=== PATIENT | female | born 1955 | race Caucasian/White ===

== ENCOUNTER → 2016-06-10 | Outpatient (CLI) | payer OTHER ==
--- NOTE | 2016-06-10 09:23 | REP ---
CHEST PA AND LATERAL: 06/10/2016. Clinical history: Acute bronchitis, unspecified. Productive cough. No comparison study. Findings. The lungs are well inflated. There is no pleural effusion, lateral pleural thickening, apical scarring or pneumothorax. There is some minimal linear scar in the left lateral base. There is no infiltrate, atelectasis or mass. The heart, mediastinal and hilar contours are normal. The airway is intact. The aorta is without aneurysm. Bony thorax shows small marginal osteophytes without acute compression deformity. No free air under the diaphragm. Impression: 1. Some minimal scar left lateral base without cardiomegaly, effusion, infiltrate, edema or other acute finding. Some minor degenerative changes in the spine, normal for age. Signed by Devante Castañeda MD 06/10/2016 09:37 A
[2016-06-10 12:43] LABS: BASO % 0.8 % (0.0-1.0); EOS % 1.9 % (0.0-3.0); LARGE UNSTAINED CELL # 0.1 K/mm3 (0.0-0.4); LARGE UNSTAINED CELL % 2.4 % (0.0-4.0); LYMPH # 1.1 K/mm3 (1.5-4.5); LYMPH % 38.3 % (24.0-44.0); MEAN CORPUSCULAR HEMOGLOBIN 30.1 pg (27.0-33.0); MEAN CORPUSCULAR HGB CONC 34.7 g/dl (32.0-36.5); MEAN CORPUSCULAR VOLUME 86.7 fl (80.0-96.0); MONO # 0.2 K/mm3 (0.0-0.8); MONO % 8.3 % (0.0-5.0); NEUTROPHILS # 1.3 K/mm3 (1.8-7.7); NEUTROPHILS % 48.3 % (36.0-66.0); PLATELET COUNT, AUTOMATED 195 k/mm3 (150-450); RED CELL DISTRIBUTION WIDTH 13.3 % (11.5-14.5); WHITE BLOOD COUNT 2.8 K/mm3 (4.0-10.0)
== END ==
LOC: M ADAMS 08:28
PROVIDERS: ATTEND Physician Assistant Medical
DX: J20.9 Acute bronchitis, unspecified (principal)

== ENCOUNTER → 2016-11-12 | Outpatient (REF) | payer OTHER ==
[2016-11-12 13:22] LABS: ANION GAP 7 MEQ/L (8-16); BLOOD UREA NITROGEN 17 MG/DL (7-18); CARBON DIOXIDE LEVEL 26 MEQ/L (21-32); CHLORIDE LEVEL 106 MEQ/L (98-107); CHOLESTEROL LEVEL 225 MG/DL (<200); CREATININE FOR GFR 0.84 MG/DL (0.55-1.02); GLOMERULAR FILTRATION RATE > 60.0 (>45); GLUCOSE, FASTING 126 MG/DL (80-110); POTASSIUM SERUM 4.5 MEQ/L (3.5-5.1); SODIUM LEVEL 139 MEQ/L (136-145); TRIGLYCERIDES LEVEL 256 MG/DL (<150)
== END ==
LOC: M LABDRWAD 12:21
PROVIDERS: ATTEND Nurse Practitioner Adult Health
DX: E78.00 Pure hypercholesterolemia, unspecified (principal); R73.01 Impaired fasting glucose

== ENCOUNTER → 2017-11-21 | Outpatient (REF) | payer OTHER ==
[2017-11-21 17:26] LABS: BASO # 0.1 10^3/uL (0.0-0.2); EOS # 0.2 10^3/uL (0.0-0.50); EOS % 3.3 % (0.0-3.0); HEMATOCRIT 40.8 % (36.0-47.0); HEMOGLOBIN 13.4 g/dl (12.0-15.5); IMMATURE GRANULOCYTE % 0.2 % (0-3.0); LYMPH # 2.4 10^3/uL (1.5-4.5); LYMPH % 46.1 % (24.0-44.0); MEAN CORPUSCULAR HEMOGLOBIN 29.3 pg (27.0-33.0); MEAN CORPUSCULAR HGB CONC 32.8 g/dl (32.0-36.5); MEAN CORPUSCULAR VOLUME 89.3 fl (80.0-96.0); MONO # 0.3 10^3/uL (0.0-0.8); MONO % 6.4 % (0.0-5.0); NEUTROPHILS # 2.2 10^3/uL (1.8-7.7); PLATELET COUNT, AUTOMATED 290 10^3/uL (150-450); RED BLOOD COUNT 4.57 10^6/uL (4.00-5.40); RED CELL DISTRIBUTION WIDTH 12.9 % (11.5-14.5); WHITE BLOOD COUNT 5.1 10^3/uL (4.0-10.0)
[2017-11-21 17:41] LABS: ALT/SGPT 27 U/L (12-78); AST/SGOT 14 U/L (7-37); C REACTIVE PROTEIN QUANTITATIV 0.36 MG/DL (0.00-0.30); CREATININE FOR GFR 0.83 MG/DL (0.55-1.30); GLOMERULAR FILTRATION RATE > 60.0 (>45)
[2017-11-21 17:49] LABS: ERYTHROCYTE SEDIMENTATION RATE 14 mm/hr (0-30)
== END ==
LOC: M LABDRWAD 17:06
DX: Z79.899 Other long term (current) drug therapy (principal)

== ENCOUNTER → 2017-11-21 | Outpatient (CLI) | payer OTHER ==
[2017-11-21 17:44] LABS: ALBUMIN 3.8 GM/DL (3.2-5.2); ALBUMIN/GLOBULIN RATIO 1.09 (1.00-1.93); ALKALINE PHOSPHATASE 89 U/L (45-117); ALT/SGPT 29 U/L (12-78); ANION GAP 8 MEQ/L (8-16); AST/SGOT 17 U/L (7-37); BILIRUBIN,TOTAL 0.6 MG/DL (0.2-1.0); BLOOD UREA NITROGEN 17 MG/DL (7-18); CALCIUM LEVEL 8.9 MG/DL (8.8-10.2); CARBON DIOXIDE LEVEL 25 MEQ/L (21-32); CHLORIDE LEVEL 108 MEQ/L (98-107); CHOLESTEROL LEVEL 237 MG/DL (<200); CHOLESTEROL RISK RATIO 4.388 (<5); CREATININE FOR GFR 0.85 MG/DL (0.55-1.30); GLOMERULAR FILTRATION RATE > 60.0 (>45); GLUCOSE, FASTING 111 MG/DL (70-100); HDL CHOLESTEROL 54 MG/DL (>40); NON-HDL-C 183 MG/DL; POTASSIUM SERUM 4.7 MEQ/L (3.5-5.1); SODIUM LEVEL 141 MEQ/L (136-145); TOTAL PROTEIN 7.3 GM/DL (6.4-8.2); TRIGLYCERIDES LEVEL 479 MG/DL (<150)
[2017-11-21 18:08] LABS: ESTIMATED AVERAGE GLUCOSE 137 MG/DL (60-110); HEMOGLOBIN A1c 6.4 %
== END ==
LOC: M ADAMS 08:50
DX: Z51.81 Encounter for therapeutic drug level monitoring (principal); Z79.899 Other long term (current) drug therapy; M05.79 Rheumatoid arthritis with rheumatoid factor of multiple sites without organ or systems involvement; E11.9 Type 2 diabetes mellitus without complications
CPT/HCPCS: 80053

== ENCOUNTER 2019-12-18 13:23 | Inpatient (IN) | payer OTHER ==
[~2019-12-18] VITALS: Ht 162.6 cm; Wt 84.9 kg
[2019-12-18] MEDS ORDERED: METF500T13 (13:53)
[2019-12-18] MEDS ORDERED: METH2.5T48 PO (13:53)
[2019-12-18] MEDS ORDERED: OXYC1TAB23 PO (13:53)
[2019-12-18] MEDS ORDERED: PLAQ200T4 PO (13:53)
[2019-12-18] MEDS ORDERED: LISI-538 PO (13:53)
[2019-12-18] MEDS ORDERED: METH1TAB40 PO (13:53)
[2019-12-18] MEDS ORDERED: CYCL5TAB PO (13:53)
[2019-12-18] MEDS ORDERED: FOLI1TAB11 PO (13:53)
[2019-12-18] MEDS ORDERED: ATOR1TAB19 PO (13:53)
[2019-12-18] MEDS ORDERED: methylPREDNISolone 125MG 2ML VIAL IV ONE (14:15)
[2019-12-18] MEDS ORDERED: LIDOCAINE 5% (LIDODERM) PATCH TD ONE (14:15)
[2019-12-18] MEDS ORDERED: CYCLOBENZAPRINE 10MG TABLET PO ONE (14:15)
[2019-12-18] MEDS ORDERED: MORPHINE 4 MG/ML 1ML VIAL/SYRINGE (J2270) IV ONE (14:15)
--- NOTE | 2019-12-18 15:23 | REPVR ---
PROCEDURE INFORMATION: Exam: CT Lumbar Spine Without Contrast Exam date and time: 12/18/2019 3:07 PM Age: 64 years old Clinical indication: Low back pain; Additional info: Low back pain radiating rle TECHNIQUE: Imaging protocol: Computed tomography images of the lumbar spine without contrast. Radiation optimization: All CT scans at this facility use at least one of these dose optimization techniques: automated exposure control; mA and/or kV adjustment per patient size (includes targeted exams where dose is matched to clinical indication); or iterative reconstruction. COMPARISON: No relevant prior studies available. FINDINGS: Vertebrae: Moderate L2-L3 spondylosis. Right L4 laminar defect. Discs/Spinal canal/Neural foramina: Severe L1-L2 and L2-L3 disc narrowing. Moderate L2-L3 spinal stenosis. Severe right L2-L3 neural foraminal narrowing (facet marginal hypertrophy). Moderately severe L3-L4 disc narrowing. Moderate L4-L5 disc narrowing. Mild bilateral L4-L5 primary facet osteoarthritis. Moderate left L5-S1 primary facet osteoarthritis. Right far L4-L5 disc protrusion. Moderate L4-L5 spinal stenosis. Broad-based kzkqlnz-tvlcqqtuqzfp-vuznyzhjwgvvps moderate L5-S1 disc protrusion producing lateral recess and left neural foraminal stenosis. Vasculature: Moderate aortic and bilateral iliac artery atherosclerotic calcifications without evidence of aneurysm. Soft tissues: Unremarkable. IMPRESSION: 1. Right far L4-L5 disc protrusion. Clinical correlation to assess for any right L4 root specific symptomatology is recommended as above. 2. Moderate L4-L5 spinal stenosis. 3. Broad-based updzlgq-yxfetjivymzy-iyujkbolrdsehg moderate L5-S1 disc protrusion producing lateral recess and left neural foraminal stenosis. 4. Additional degenerative changes as above. 5. No acute lumbar spinal bony abnormality identified. Electronically signed by: Sal Lechuga On 12/18/2019 15:23:54 PM
[2019-12-18] MEDS ORDERED: PERCOCET 5MG/325MG TAB PO ONE (15:45)
[2019-12-18] MEDS ORDERED: MORPHINE 2 MG/ML 1ML VIAL (J2270) IV ONE (15:45)
[2019-12-18 17:01] LABS: BASO % 0.5 % (0.0-1.0); EOS % 0.5 % (0.0-3.0); HEMATOCRIT 37.1 % (36.0-47.0); HEMOGLOBIN 12.8 g/dl (12.0-15.5); LYMPH # 0.7 10^3/uL (1.5-5.0); LYMPH % 11.7 % (24.0-44.0); MEAN CORPUSCULAR HEMOGLOBIN 30.2 pg (27.0-33.0); MEAN CORPUSCULAR HGB CONC 34.5 g/dl (32.0-36.5); MEAN CORPUSCULAR VOLUME 87.5 fl (80.0-96.0); MONO # 0.1 10^3/uL (0.0-0.8); MONO % 1.1 % (0.0-5.0); NEUTROPHILS # 5.2 10^3/uL (1.5-8.5); NEUTROPHILS % 85.2 % (36.0-66.0); PLATELET COUNT, AUTOMATED 225 10^3/uL (150-450); RED BLOOD COUNT 4.24 10^6/uL (4.00-5.40); WHITE BLOOD COUNT 6.1 10^3/uL (4.0-10.0)
[2019-12-18] MEDS ORDERED: METF-838 PO (17:16)
--- NOTE | 2019-12-18 17:17 | HPEPDOC ---
[facility] Medical History & Physical Date of Admission Dec 18, 2019 Date of Service: Dec 18, 2019 History and Physical CHIEF COMPLAINT: Back pain HISTORY OF PRESENT ILLNESS: 64 yo female for 2-3 week history of worsening lower back pain. States she has suffered from chronic lower back / sciatica for the past 3-4 years. Had a bilateral laminectomy in the early by Dr Montana in [place]. Denies any bladder/bowel changes. This morning while showering she states had a significant worsening of her lower back pain. Denies saddle parasthesia. States her pain significantly worsens with walking. Denies chest pain, shortness of breath, falls, headaches, N/V/D. PAST MEDICAL HISTORY: #RA on MTX and plaquenil - follows Dr Levar Perez in [place] #HTN #DM #hypertriglyceridemia #ASD s/p repair ALLERGIES: Please see below. REVIEW OF SYSTEMS: Negative except as per HPI. HOME MEDICATIONS: Please see below. PHYSICAL EXAMINATION: VITAL SIGNS: See below General: NAD, lying comfortably in bed HEENT: NC/AT, EOMI Lungs: CTA B/L HEart: +S1S2, RRR Abd: soft, NT, +BS Ext: no edema Neuro: sensation intact throughout, strength 5/5 b/l u/l extremities LABORATORY DATA: See below. MICROBIOLOGY: Please see below. ASSESSMENT: 64 yo female admitted for acute/chronic lower back pain with gait dysfunction, PMHx RA/MTX, DM, HTN, DLP. #back pain - PT eval - ortho c/s - CT spine noted - pain control #HTN - continue home meds #RA - continue home meds - MTX on Tuesdays #DM - sliding scale insulin #DLP - continue home Rx #DVT prophylaxis - heparin SC Vital Signs Vital Signs Date Time Temp Pulse Resp B/P (MAP) Pulse Ox O2 Delivery O2 Flow Rate FiO2 12/18/19 16:45 158/100 (119) 12/18/19 16:45 20 Room Air 12/18/19 16:35 100 12/18/19 16:34 91 12/18/19 14:03 98.3 Laboratory Data Labs 24H Laboratory Tests 2 12/18/19 16:45: Immature Granulocyte % (Auto) 1.0, Neutrophils (%) (Auto) 85.2H, Lymphocytes (%) (Auto) 11.7L, Monocytes (%) (Auto) 1.1, Eosinophils (%) (Auto) 0.5, Basophils (%) (Auto) 0.5, Neutrophils # (Auto) 5.2, Lymphocytes # (Auto) 0.7L, Monocytes # (Auto) 0.1, Eosinophils # (Auto) 0.0, Basophils # (Auto) 0.0, Nucleated Red Blood Cells % (auto) 0.0 CBC/BMP Laboratory Tests 12/18/19 16:45 Home Medications Scheduled Atorvastatin Calcium (Atorvastatin Calcium) 10 Mg Tablet, 10 MG PO QPM Folic Acid (Folic Acid) 1 Mg Tablet, 1 MG PO QPM Hydroxychloroquine Sulfate (Plaquenil) 200 Mg Tablet, 200 MG PO QHS Lisinopril (Lisinopril) 20 Mg Tablet, 10 MG PO QPM Metformin HCl (Metformin HCl ER) 500 Mg Tab.er.24h, 500 MG PO QPM Methotrexate Sodium (Methotrexate) 2.5 Mg Tablet, 7.5 MG PO QWEEK WEDNESDAY Scheduled PRN Cyclobenzaprine HCl (Cyclobenzaprine HCl) 5 Mg Tablet, 5 MG PO TID PRN for MUSCLE SPASMS Methocarbamol (Methocarbamol) 500 Mg Tablet, 500 MG PO BID PRN for MUSCLE SPASMS Oxycodone HCl/Acetaminophen (Oxycodone-Acetaminophen 5-325) 1 Each Tablet, 1 TAB PO QID PRN for PAIN Allergies Coded Allergies: lansoprazole (Verified Allergy, Unknown, 12/18/19) A-FIB/CHADSVASC A-FIB History Current/History of A-Fib/PAF?: No PB MOON MD Dec 18, 2019 17:17
[2019-12-18 17:28] LABS: BLOOD UREA NITROGEN 19 MG/DL (7-18); CALCIUM LEVEL 9.1 MG/DL (8.8-10.2); CARBON DIOXIDE LEVEL 26 MEQ/L (21-32); CHLORIDE LEVEL 108 MEQ/L (98-107); CREATININE FOR GFR 0.82 MG/DL (0.55-1.30); GLOMERULAR FILTRATION RATE > 60.0 (>45); GLUCOSE, FASTING 166 MG/DL (70-100); POTASSIUM SERUM 4.3 MEQ/L (3.5-5.1); SODIUM LEVEL 140 MEQ/L (136-145)
[2019-12-18] MEDS ORDERED: GLUCAGON INJ 1MG VIAL SC PRN (17:30)
[2019-12-18] MEDS ORDERED: GLUCOSE 4GM CHEW TABLET PO PRN (17:30)
[2019-12-18] MEDS ORDERED: DEXTROSE 50% 50 ML SYRINGE IV PRN (17:30)
[2019-12-18 18:00] VITALS: BP 167/92
[2019-12-18] MEDS: HumaLOG INSULIN (NovoLOG) PER UNIT SC SCH ×2 (18:32→20:22)
[2019-12-18] MEDS: ATORVASTATIN 10 MG TAB PO SCH (20:23)
[2019-12-18] MEDS: methocarbamoL 500 MG TAB PO PRN (20:23)
[2019-12-18] MEDS: HEPARIN SOD (PORCINE) 5000UNITS/ML 1ML VIAL/SYRINGE SC SCH (20:23)
[2019-12-18] MEDS: CYCLOBENZAPRINE 5MG TABLET PO PRN (20:23)
[2019-12-18] MEDS: HYDROXYCHLOROQUINE 200 MG TAB PO SCH (20:23)
[2019-12-18] MEDS: lisinopriL 10 MG TAB PO SCH (20:24)
[2019-12-18] MEDS: FOLIC ACID 1 MG TAB PO SCH (20:24)
[2019-12-18 22:00] VITALS: BP 160/76
[2019-12-18] MEDS: PERCOCET 5MG/325MG TAB PO PRN (22:26)
[2019-12-19] MEDS ORDERED: **NOTE PATIENT COMMENT** MISC XX ONE (02:00)
[2019-12-19] MEDS: CYCLOBENZAPRINE 5MG TABLET PO PRN (03:25)
[2019-12-19 06:00] VITALS: BP 133/75
[2019-12-19] MEDS: PERCOCET 5MG/325MG TAB PO PRN (06:16)
[2019-12-19 06:41] LABS: HEMATOCRIT 35.8 % (36.0-47.0); HEMOGLOBIN 12.4 g/dl (12.0-15.5); MEAN CORPUSCULAR HEMOGLOBIN 29.6 pg (27.0-33.0); MEAN CORPUSCULAR HGB CONC 34.6 g/dl (32.0-36.5); MEAN CORPUSCULAR VOLUME 85.4 fl (80.0-96.0); PLATELET COUNT, AUTOMATED 253 10^3/uL (150-450); RED BLOOD COUNT 4.19 10^6/uL (4.00-5.40); WHITE BLOOD COUNT 5.1 10^3/uL (4.0-10.0)
[2019-12-19 07:16] LABS: BLOOD UREA NITROGEN 23 MG/DL (7-18); CALCIUM LEVEL 9.3 MG/DL (8.8-10.2); CARBON DIOXIDE LEVEL 22 MEQ/L (21-32); CHLORIDE LEVEL 106 MEQ/L (98-107); CREATININE FOR GFR 0.73 MG/DL (0.55-1.30); GLOMERULAR FILTRATION RATE > 60.0 (>45); GLUCOSE, FASTING 201 MG/DL (70-100); POTASSIUM SERUM 4.4 MEQ/L (3.5-5.1); SODIUM LEVEL 137 MEQ/L (136-145)
[2019-12-19] MEDS: HEPARIN SOD (PORCINE) 5000UNITS/ML 1ML VIAL/SYRINGE SC SCH ×2 (08:51→21:26)
[2019-12-19] MEDS: HumaLOG INSULIN (NovoLOG) PER UNIT SC SCH ×4 (08:51→21:00)
[2019-12-19] MEDS: methocarbamoL 500 MG TAB PO PRN (08:57)
[2019-12-19] MEDS ORDERED: CYCLOBENZAPRINE 10MG TABLET PO PRN (09:15)
[2019-12-19] MEDS ORDERED: PERCOCET 5MG/325MG TAB PO PRN ×2 (09:15)
--- NOTE | 2019-12-19 12:48 | IPNPDOC ---
Text Note Date of Service The patient was seen on 12/19/19. NOTE Subjective: Brando is a 64 year old female who has been complaining of a 2-3 week history of worsening lower back pain. States she has suffered from chronic lower back / sciatica for the past 3-4 years. Had a bilateral laminectomy in the early by Dr Montana in [place]. Denies any bladder/bowel changes. On 12/17 patient reported she was showering and had a significant worsening of her lower back pain. Admitted to hospitalist service and orthopedic surgery was called on consultation. Patient was seen and examined at the bedside. Patient denied any CP, SOB or palpitations. Denies any N/V, abdominal pain, C/D or urinary discomfort. Patient replots that their back pain is tolerable when they are not moving, but reports significant pain with ambulation. Objective: Vitals (See below) General: Lying in bed, no acute distress, comfortable, AAOx3 HEENT: NC, AT CVS: +S1S2 Lungs: Fair air entry b/l, -w/r/r Abdomen: Soft, ND, NT Extremities: - Edema, - Calf tenderness Neuro: 5/5 strength at bilateral LE Assessment and plan: Acute on Chronic back pain - No evidence of focal neurologic deficit - CT Lumbar spine 12/17: 1. Right far L4-L5 disc protrusion. Clinical correlation to assess for any right L4 root specific symptomatology is recommended as above. 2. Moderate L4-L5 spinal stenosis. 3. Broad-based dpwssqk-fidfkixmgyme-livitupdmhewyp moderate L5-S1 disc protrusion producing la teral recess and left neural foraminal stenosis. 4. Additional degenerative changes as above. 5. No acute lumbar spinal bony abnormality identified. - Orthopedic surgery on consolation - Will consult pain management - Has been given lidocaine patch yesterday - c/w Percocet; will increase dosing; will continue Flexeril and Methocarbamol HTN - BP well controlled - c/w Lisinopril RA - c/w Hydroxychloroquine and Methotrexate on Tuesdays DM2 - c/w ISS DLP - c/w Atorvastatin DVT prophylaxis - c/w Heparin Disposition: - Awaiting PT / OT clearance - Pain management on consultation VS,Juan R, I+O VS, Juan R, I+O Laboratory Tests 12/18/19 16:45 12/19/19 06:11 Vital Signs Date Time Temp Pulse Resp B/P (MAP) Pulse Ox O2 Delivery O2 Flow Rate FiO2 12/19/19 12:15 16 12/19/19 06:00 99.0 77 133/75 (94) 98 Room Air I&O- Last 24 Hours up to 6 AM 12/19/19 06:00 Intake Total 450 ml Balance 450 ml VIKY RAZA MD Dec 19, 2019 12:48
[2019-12-19 14:00] VITALS: BP 150/70
[2019-12-19] MEDS ORDERED: METHOTREXATE 2.5 MG TAB (J8610 PER 2.5MG) PO SCH (18:00)
[2019-12-19] MEDS: MORPHINE 30 MG TAB **MSIR PO PRN (18:08)
[2019-12-19] MEDS: FOLIC ACID 1 MG TAB PO SCH (21:24)
[2019-12-19] MEDS: HYDROXYCHLOROQUINE 200 MG TAB PO SCH (21:25)
[2019-12-19] MEDS: ATORVASTATIN 10 MG TAB PO SCH (21:25)
[2019-12-19] MEDS: lisinopriL 10 MG TAB PO SCH (21:25)
[2019-12-19] MEDS: CYCLOBENZAPRINE 10MG TABLET PO SCH (21:26)
[2019-12-19 22:00] VITALS: BP 152/90
[2019-12-20] MEDS: MORPHINE 30 MG TAB **MSIR PO PRN ×4 (02:06→22:27)
[2019-12-20 06:00] VITALS: BP 138/85
[2019-12-20] MEDS ORDERED: SENOKOT S TAB PO PRN (08:00)
[2019-12-20] MEDS: CYCLOBENZAPRINE 10MG TABLET PO SCH ×3 (08:00→20:23)
[2019-12-20] MEDS ORDERED: MIRALAX *UNIT DOSE* 17GM PACKET PO PRN (08:00)
[2019-12-20] MEDS: HEPARIN SOD (PORCINE) 5000UNITS/ML 1ML VIAL/SYRINGE SC SCH ×2 (08:01→20:23)
[2019-12-20] MEDS: HumaLOG INSULIN (NovoLOG) PER UNIT SC SCH ×4 (08:01→21:00)
--- NOTE | 2019-12-20 12:53 | IPNPDOC ---
Text Note Date of Service The patient was seen on 12/20/19. NOTE Subjective: Brando is a 64 year old female who has been complaining of a 2-3 week history of worsening lower back pain. States she has suffered from chronic lower back / sciatica for the past 3-4 years. Had a bilateral laminectomy in the early by Dr Montana in [place]. Denies any bladder/bowel changes. On 12/17 patient reported she was showering and had a significant worsening of her lower back pain. Admitted to hospitalist service and orthopedic surgery was called on consultation. Patient was seen and examined at the bedside. Currently patient notes that their pain is better controlled. Denies any CP, SOB or palpitations. Denies any abdominal pain, C/D or urinary discomfort. Objective: Vitals (See below) General: Lying in bed, no acute distress, appears comfortable, AAOx3 HEENT: NC, AT CVS: +S1S2 Lungs: Fair air entry b/l, no wheezing / rhonchi / rales Abdomen: Soft, non-distended, non-tender Extremities: No evidence of edema, - Calf tenderness Assessment and plan: Acute on Chronic back pain - No evidence of focal neurologic deficit - CT Lumbar spine 12/17: 1. Right far L4-L5 disc protrusion. Clinical correlation to assess for any right L4 root specific symptomatology is recommended as above. 2. Moderate L4-L5 spinal stenosis. 3. Broad-based hnpedoc-svmplqcolhxz-iaezpdqyuxqhsx moderate L5-S1 disc protrusion producing lateral recess and left neural foraminal stenosis. 4. Additional degenerative changes as above. 5. No acute lumbar spinal bony abnormality identified. - Orthopedic surgery on consultation - Consulted pain management; changed medications based on their recommendations; advised that patient should continue to follow up with them as an outpatient - c/w Morphine short acting and standing dose of Flexeril; s/p Methocarbamol HTN - BP well controlled - c/w Lisinopril RA - c/w Hydroxychloroquine and Methotrexate on Tuesdays DM2 - c/w ISS DLP - c/w Atorvastatin DVT prophylaxis - c/w Heparin Disposition: - Awaiting PT / OT clearance; possible DC within 24 hours VS,Fishbone, I+O VS, Fishbone, I+O Vital Signs Date Time Temp Pulse Resp B/P (MAP) Pulse Ox O2 Delivery O2 Flow Rate FiO2 12/20/19 10:17 16 12/20/19 06:00 98.2 74 138/85 (102) 95 Room Air I&O- Last 24 Hours up to 6 AM 12/20/19 06:00 Intake Total 1270 ml Balance 1270 ml VIKY RAZA MD Dec 20, 2019 12:53
[2019-12-20 14:00] VITALS: BP 149/88
--- NOTE | 2019-12-20 20:18 | REPVR ---
PROCEDURE INFORMATION: Exam: MR Lumbar Spine Without Contrast. Exam date and time: 12/20/2019 6:11 PM Age: 64 years old Clinical indication: Low back pain; Prior surgery; Surgery date: 6+ months; Surgery type: Laminectomy; Additional info: Assess right lumbar radiculopathy, HX of laminectomy TECHNIQUE: Imaging protocol: Multiplanar magnetic resonance images of the lumbar spine without intravenous contrast. COMPARISON: CT Spine, lumbar w/o contrast 12/18/2019 3:04 PM FINDINGS: The conus is normal in size with no evidence of abnormal bright signal intensity. There is a hemangioma of the L2 vertebra. There is some irregularity of the endplates and osteophyte formation consistent with degenerative and arthritic changes. Marrow space has a normal signal intensity. L5-S1: There is a small left focal disc protrusion contacting the left S1 nerve root. There is severe left L5 neural foraminal narrowing secondary to disc protrusion caudal left L5 neural foramina. L4-L5: There is a moderate right lateral disc extrusion causing impression on the anterior right side of thecal sac. There is very severe right L4 neural foraminal narrowing secondary to disc extrusion into the right L4 neural foramina. There is also facet hypertrophy. L3-L4: There is a small broad-based disc protrusion causing mild to moderate impression on the thecal sac. L2-L3: There is a moderate central disc extrusion with mild inferior migration of disc causing moderate impression on the anterior aspect of the thecal sac. There is also prominent facet hypertrophy and moderate bilateral L2 neural foraminal narrowing. L1-L2: There is moderate left paracentral disc protrusion causing mild impression on the thecal sac. There is mild disc protrusion into the caudal aspect the L1 neural foramina. IMPRESSION: 1. The L1 L2 level demonstrates a moderate left paracentral disc protrusion. 2. The L2-L3 level demonstrates moderate central disc extrusion causing moderate impression on the thecal sac. 3. The L3-L4 level demonstrates a small broad-based disc protrusion. 4. The L4-L5 level demonstrate moderate right lateral disc extrusion causing impression on the anterior right side of the thecal sac and severe right L4 neural foraminal narrowing secondary to right disc extrusion into the right L4 neural foramina. 5. The L5-S1 level demonstrates moderate focal left disc protrusion contacting S1. Severe left L5 neural foraminal narrowing secondary to disc protrusion at the caudal left L5 neural foramina. Electronically signed by: Papito Castro On 12/20/2019 20:18:33 PM
[2019-12-20 20:22] VITALS: BP 141/80
[2019-12-20] MEDS: HYDROXYCHLOROQUINE 200 MG TAB PO SCH (20:22)
[2019-12-20] MEDS: lisinopriL 10 MG TAB PO SCH (20:22)
[2019-12-20] MEDS: FOLIC ACID 1 MG TAB PO SCH (20:23)
[2019-12-20] MEDS: ATORVASTATIN 10 MG TAB PO SCH (20:23)
[2019-12-20] MEDS ORDERED: ACETAMINOPHEN TAB 650MG DOSE (2X325MG) PO ONE (21:15)
[2019-12-20 22:00] VITALS: BP 141/80
[2019-12-21 06:00] VITALS: BP 125/75
[2019-12-21] MEDS: MORPHINE 30 MG TAB **MSIR PO PRN ×2 (06:02→13:36)
[2019-12-21] MEDS: CYCLOBENZAPRINE 10MG TABLET PO SCH (08:14)
[2019-12-21] MEDS: HEPARIN SOD (PORCINE) 5000UNITS/ML 1ML VIAL/SYRINGE SC SCH (08:14)
[2019-12-21] MEDS: HumaLOG INSULIN (NovoLOG) PER UNIT SC SCH ×2 (08:15→12:00)
[2019-12-21] MEDS ORDERED: PEG1POW PO (12:10)
[2019-12-21] MEDS ORDERED: MSIR30TA PO (12:10)
[2019-12-21] MEDS ORDERED: SENN-52 PO (12:10)
[2019-12-21] MEDS ORDERED: CYCL-707 PO (12:10)
[2019-12-21] MEDS ORDERED: MORP15TA2 PO (12:28)
[2019-12-21] MEDS ORDERED: ACETAMINOPHEN TAB 650MG DOSE (2X325MG) PO ONE (12:30)
--- NOTE | 2019-12-21 12:34 | DS.PDOC ---
Discharge Summary General Date of Admission Dec 18, 2019 at 17:08 Date of Discharge 12/21/2019 Discharge Summary PROCEDURES PERFORMED DURING STAY: [None]. ADMITTING DIAGNOSES / DISCHARGE DIAGNOSES: Acute on Chronic back pain HTN RA DM2 DLP DVT prophylaxis COMPLICATIONS/CHIEF COMPLAINT: Back Pain. HISTORY OF PRESENT ILLNESS: Brando is a 64 year old female who has been complaining of a 2-3 week history of worsening lower back pain. States she has suffered from chronic lower back / sciatica for the past 3-4 years. Had a bilateral laminectomy in the early by Dr Montana in [place]. Denies any bladder/bowel changes. On 12/17 patient reported she was showering and had a significant worsening of her lower back pain. Admitted to hospitalist service and orthopedic surgery was call ed on consultation. HOSPITAL COURSE: Acute on Chronic back pain - No evidence of focal neurologic deficit - CT Lumbar spine 12/17: 1. Right far L4-L5 disc protrusion. Clinical correlation to assess for any right L4 root specific symptomatology is recommended as above. 2. Moderate L4-L5 spinal stenosis. 3. Broad-based brcbwvo-ktvwtlvaanjy-sawlpvcbgjfdrq moderate L5-S1 disc protrusion producing lateral recess and left neural foraminal stenosis. 4. Additional degenerative changes as above. 5. No acute lumbar spinal bony abnormality identified. - MRI Lumbar spine 12/19: 1. The L1 L2 level demonstrates a moderate left paracentral disc protrusion. 2. The L2-L3 level demonstrates moderate central disc extrusion causing moderate impression on the thecal sac. 3. The L3-L4 level demonstrates a small broad-based disc protrusion. 4. The L4-L5 level demonstrate moderate right lateral disc extrusion causing impression on the anterior right side of the thecal sac and severe right L4 neural foraminal narrowing secondary to right disc extrusion into the right L4 neural foramina. 5. The L5-S1 level demonstrates moderate focal left disc protrusion contacting S1. Severe left L5 neural foraminal narrowing secondary to disc protrusion at the caudal left L5 neural foramina. - Orthopedic surgery on consultation; has evaluated imaging; has advised outpatient follow up and pain management - Consulted pain management; changed medications based on their recommendations; advised that patient should continue to follow up with them as an outpatient - c/w Morphine short acting and standing dose of Flexeril; s/p Methocarbamol - Patient has cleared PT today and will be discharge home with follow up with PCP, Pain management and Orthopedic surgery HTN - BP well controlled - c/w Lisinopril RA - c/w Hydroxychloroquine and Methotrexate on Tuesdays DM2 - c/w ISS DLP - c/w Atorvastatin DVT prophylaxis - c/w Heparin DISCHARGE MEDICATIONS: Please see below. ALLERGIES: Please see below. PHYSICAL EXAMINATION ON DISCHARGE: Vitals (See below) General: Lying in bed, appears comfortable laying in bed, AAOx3 HEENT: NC, AT CVS: +S1S2 Lungs: Fair air entry b/l, no wheezing / rhonchi / rales on auscultation Abdomen: Soft, abdomen is without distension or tenderness Extremities: No evidence of LE edema, - Calf tenderness LABORATORY DATA: Please see below. ACTIVITY: [As tolerated]. DISCHARGE PLAN: Follow up with PCP, Dr. Oliveros and Pain management as an outpatient Remain compliant with treatment plan and medications Return to the ER if you experience any problems DISPOSITION: Home DISCHARGE CONDITION: [Stable]. TIME SPENT ON DISCHARGE: 35 minutes Vital Signs/I&Os Vital Signs Date Time Temp Pulse Resp B/P (MAP) Pulse Ox O2 Delivery O2 Flow Rate FiO2 12/21/19 06:32 18 Room Air 12/21/19 06:00 98.8 76 125/75 (92) 99 I&O- Last 24 Hours up to 6 AM 12/21/19 06:00 Intake Total 1320 ml Output Total 0 ml Balance 1320 ml Discharge Medications Scheduled Atorvastatin Calcium (Atorvastatin Calcium) 10 Mg Tablet, 10 MG PO QPM, (Reported) Cyclobenzaprine HCl (Cyclobenzaprine HCl) 10 Mg Tablet, 10 MG PO TID Folic Acid (Folic Acid) 1 Mg Tablet, 1 MG PO QPM, (Reported) Hydroxychloroquine Sulfate (Plaquenil) 200 Mg Tablet, 200 MG PO QHS, (Reported) Lisinopril (Lisinopril) 20 Mg Tablet, 10 MG PO QPM, (Reported) Metformin HCl (Metformin HCl ER) 500 Mg Tab.er.24h, 500 MG PO QPM, (Reported) Methotrexate Sodium (Methotrexate) 2.5 Mg Tablet, 7.5 MG PO QWEEK, (Reported) WEDNESDAY Scheduled PRN Morphine Sulfate (Morphine Sulfate) 15 Mg Tablet, 1 TAB PO Q6HP PRN for pain Polyethylene Glycol 3350 (Polyethylene Glycol 3350) 17 Gm Powd.pack, 1 PKT PO DAILYPRN PRN for CONSTIPATION Sennosides/Docusate Sodium (Senna Plus Tablet) 1 Each Tablet, 2 TAB PO BIDP PRN for CONSTIPATION Allergies Coded Allergies: lansoprazole (Verified Allergy, Unknown, 12/18/19) VIKY RAZA MD Dec 21, 2019 12:34
--- NOTE | 2020-01-03 08:13 | CR ---
DATE: 12/19/2019 CHIEF COMPLAINT: Right radicular lower back pain. HISTORY OF PRESENT ILLNESS: This is a 64-year-old female seen today for increasing lower back pain and right-sided leg pain. It has been worse over the last 2-3 weeks; acutely worse over the last few days. She had another episode back about three years ago. She also had a laminectomy she thinks on the right side, possibly at the L4-5 or L5-S1 level. This was in early . She did not have recurrence or anything this bad that brought her into the hospital before this. Pain is in the middle of her lower spine down to her right leg down to the ankle. This is numbness. There is no weakness, but she is having great difficulties ambulating due to the pain. There is no change in her bowel or bladder habits. No loss of function or perianal numbness. She has had a number of injections into her back in the past as well as different pain medications. PAST MEDICAL HISTORY: Includes rheumatoid arthritis, hypertension, diabetes, dyslipidemia, ASD. MEDICATIONS: Include Atorvastatin, folate, Hydroxychloroquine, Lisinopril, Metformin, Methotrexate. ALLERGIES: Lansoprazole. SOCIAL HISTORY: She is here with her daughter. She normally walks without any sort of ambulatory aids. PHYSICAL EXAMINATION: Vital signs stable. She appears comfortable. She is lying supine in bed with her knees propped up under some pillows. Palpation of the cervical, thoracic and lumbar spine revealed no obvious steps or gallops or obvious deformities. There is no obvious pain to palpation in the midline. Sensation is normal in the lower extremities, L2 through S1, 2/2. Strength is normal in the lower extremities, L2 to S1 and all 5/5. Plantars downgoing both sides. No obvious clonus. No pain in the right hip with logrolling testing. Negative straight leg raise on the left and mildly positive on the right side. This is even at flexion of about 55 degrees of the hip. Normal pedal pulses. Feet are warm and well perfused. There is mid to right-sided longitudinal incision near her lower lumbar spine that is well healed and free of redness, swelling or drainage. IMAGING STUDIES: Lumbar CT scan was reviewed from 12/18/2019. The radiologists impression shows her right far L4-L5 disc protrusion. Clinical correlation to assess for any right L4 root specific symptomatology is recommended as above. Moderate L4-L5 spinal stenosis. Three broad based central subarticular intraforaminal moderate L5-S1 disc protrusion producing lateral recess and left neuroforaminal stenosis. Additional degenerative changes as above. No acute lumbar spinal abnormality identified. ASSESSMENT & PLAN: This 64-year-old female appears to have acute exacerbation of right-sided lumbar radiculopathy. Recommended rest, ice, anti-inflammatories, Gabapentin, possible oral steroids, pain service consult, medical management per the hospitalist and mobilization and weightbearing as tolerated with PT and OT services. She would benefit from outpatient spine surgical consult. Also go ahead and order an MRI to fully assess the disc herniations and irritation of the lumbar spine nerve roots. She understands that she has had these similar symptoms in the past and had multiple different treatments for this. I will follow while in the hospital. Thank you very much for the consult. CHERRIE
== END 2019-12-21 14:20 | disposition home or self-care (01) | DRG 347 ==
LOC: M ED 13:23 → M ED INP 17:08 → M MS5PR 18:26
PROVIDERS: ADMIT Internal Medicine; ATTEND Internal Medicine
DX: M54.5 Low back pain (principal); I10 Essential (primary) hypertension; E11.9 Type 2 diabetes mellitus without complications; M06.9 Rheumatoid arthritis, unspecified; Z79.899 Other long term (current) drug therapy; Z88.8 Allergy status to other drugs, medicaments and biological substances

== ENCOUNTER → 2020-02-02 | Outpatient (CLI) | payer OTHER ==
[~2020-02-02] MED LIST: ATOR1TAB19 PO; CYCL-707 PO; CYCL5TAB PO; FOLI1TAB11 PO; LISI-538 PO; METF-838 PO; METF500T13; METH1TAB40 PO; METH2.5T48 PO; MORP15TA2 PO; MSIR30TA PO; OXYC1TAB23 PO; PEG1POW PO; PLAQ200T4 PO; SENN-52 PO
--- NOTE | 2020-02-02 09:27 | REPMRS ---
Patient History The patient states she has not had a clinical breast exam in over a year. Family history of premenopausal breast cancer at age 50 in sister. 3D TOMOSYNTHESIS WAS PERFORMED. The Manda Ballard lifetime risk for breast cancer is 8.1%. VOLNJ Hendricks. Digital Woman Screen Mammo: February 02, 2020 - Exam #: [id number] Bilateral CC and MLO view(s) were taken. Technologist: Karoline Doshi, Technologist Prior study comparison: April 22, 2016, digital woman screen mammo performed at [facility]. September 26, 2013, digital woman screen mammo performed at [facility]. FINDINGS: There are scattered fibroglandular densities. There has been no change in the appearance of the mammogram from the prior studies. There is a mild amount of residual fibroglandular tissue which is fairly symmetric. There is no interval development of dominant mass, architectural distortion, or clustered microcalcification suggestive of malignancy. Assessment: BI-RADS/ACR category 1 mammogram. Negative Mammogram. Recommendation Routine screening mammogram in 1 year (for women over age 40). This mammogram was interpreted with the aid of an FDA-approved computer-aided dectection system. Electronically Signed By: Jose M Han MD 02/02/20 [id number]
== END ==
LOC: M WHC 07:07
PROVIDERS: ATTEND Family Medicine
DX: Z12.31 Encounter for screening mammogram for malignant neoplasm of breast (principal); Z80.3 Family history of malignant neoplasm of breast

== ENCOUNTER → 2021-02-03 | Outpatient (CLI) | payer OTHER ==
[~2021-02-03] MED LIST changes: -LISI-538 PO; +LISI20TA33 PO; +METH-1164 PO; -METH1TAB40 PO; -PEG1POW PO; +POLY17PO18 PO
--- NOTE | 2021-02-03 10:28 | REPMRS ---
Patient History The patient states she has not had a clinical breast exam in over a year. Family history of premenopausal breast cancer at age 50 in sister. Tomosynthesis is performed. Volpara breast density is b. [facility] lifetime risk of breast cancer 7.8%. Patient states no breast complaints today. Patient has signed MRS History Sheet. Digital Woman Screen Mammo: February 03, 2021 - Exam #: [id number] Bilateral CC and MLO view(s) were taken. Technologist: Jazmin Mendoza, Technologist Prior study comparison: February 02, 2020, bilateral digital woman screen mammo performed at [facility]. April 22, 2016, digital woman screen mammo performed at [facility]. FINDINGS: There are scattered fibroglandular densities. There has been no change in the appearance of the mammogram from the prior studies. There is a mild amount of residual fibroglandular tissue which is fairly symmetric. There is no interval development of dominant mass, architectural distortion, or clustered microcalcification suggestive of malignancy. Assessment: BI-RADS/ACR category 1 mammogram. Negative Mammogram. Recommendation Routine screening mammogram in 1 year (for women over age 40). This mammogram was interpreted with the aid of an FDA-approved computer-aided dectection system. Electronically Signed By: Jose M Han MD 02/03/21 [id number]
--- NOTE | 2021-02-03 10:39 | DEXAMM ---
INDICATION: ASYMPTOMATIC MENOPAUSAL STATE. COMPARISON: None. TECHNIQUE: Bone density was measured using dual-energy x-ray absorptiometry (DEXA). FINDINGS: AP SPINE L1-L4 BMD 1.374 g/cm2 Young Adult T-Score 1.5 Age Matched Z-Score 3.0. LT FEMUR, TOTAL BMD 0.986 g/cm2 Young Adult T-Score -0.2 Age Matched Z-Score 1.0. LT NECK BMD 0.865 g/cm2 Young Adult T-Score -1.2 Age Matched Z-Score 0.2. RT FEMUR, TOTAL BMD 0.998 g/cm2 Young Adult T-Score -0.1 Age Matched Z-Score 1.1. RT NECK BMD 0.888 g/cm2 Young Adult T-Score -1.1 Age Matched Z-Score 0.4. IMPRESSION: There is normal bone density of the spine. There is low bone density of the left hip. There is low bone density of the right hip. FOLLOW-UP: Recommendation for the next bone density exam: 2 years. <Electronically signed by Jose M Han > 02/03/21 [id number]
== END ==
LOC: M WHC 09:10
PROVIDERS: ATTEND Family Medicine
DX: Z12.31 Encounter for screening mammogram for malignant neoplasm of breast (principal)

== ENCOUNTER → 2022-02-05 | Outpatient (CLI) | payer MEDICARE, MEDICAID | LOC: M WHC 12:53 | PROVIDERS: ATTEND Family Medicine | DX: Z12.31 Encounter for screening mammogram for malignant neoplasm of breast (principal) ==

== ENCOUNTER → 2023-02-08 | Outpatient (CLI) | payer MEDICARE, OTHER | LOC: M WHC 07:17 | PROVIDERS: ATTEND Family Medicine | DX: Z12.31 Encounter for screening mammogram for malignant neoplasm of breast (principal); Z78.0 Asymptomatic menopausal state; M85.89 Other specified disorders of bone density and structure, multiple sites ==

== ENCOUNTER → 2024-02-14 | Outpatient (CLI) | payer MEDICARE, OTHER | LOC: M WHC 10:15 | PROVIDERS: ATTEND Student in an Organized Health Care Education/Training Program | DX: Z12.31 Encounter for screening mammogram for malignant neoplasm of breast (principal) ==

== ENCOUNTER → 2025-02-14 | Outpatient (CLI) | payer MEDICARE, OTHER ==
[~2025-02-14] MED LIST changes: -CYCL5TAB PO; +CYCL5TAB4 PO; +MORP-137 PO; -MSIR30TA PO
== END ==
LOC: M WHC 09:20
PROVIDERS: ATTEND Student in an Organized Health Care Education/Training Program
DX: Z12.31 Encounter for screening mammogram for malignant neoplasm of breast (principal); M81.0 Age-related osteoporosis without current pathological fracture